=== PATIENT | male | born 1975 | race Caucasian/White ===

== ENCOUNTER 2017-01-23 16:43 | Emergency (ER) | payer SELFPAY ==
--- NOTE | 2017-01-23 18:30 | CT ---
C-SPINE W/O CON History: Increasing pain. Procedure: 1 mm axial images were obtained through the cervical spine from the base of the skull to T1 with stacked reconstructed 2 mm images photographed in the axial, coronal and sagittal planes. Comparison: None. Findings: The osseous structures are intact without evidence of a discrete fracture. The alignment is normal. No significant subluxation is visualized. The facets align appropriately without evidence of a perched or jumped facet. The spinous processes appear to be intact. No prevertebral soft tissue swelling is observed. The pre-dens space is not widened. The odontoid process is intact. The thyroid gland and the visualized lung apices appear to be normal. There is the suggestion of left T1-2 osseous neural foraminal narrowing. There is also the suggestion of a small left paracentral protrusion at C6-7. Impression: 1. No discrete fracture or significant subluxation visualized. 2. Left-sided osseous neural foraminal narrowing at T1-2. 3. A suggested small left paracentral disc protrusion at C6-7.
--- NOTE | 2017-01-23 18:38 | CT ---
T-SPINE W/O CON History: Increasing back pain. Comparison: None. Procedure: 1 mm axial images were obtained through the thoracic spine without the use of oral or intravenous contrast. Stacked reconstructed 3 mm images were then photographed in the axial, coronal and sagittal planes. Findings: Images demonstrate an intact appearance of the visualized osseous structures. There is no significant compression deformity visualized. There is evidence of mild multilevel thoracic spondylosis changes. Mild osseous neural foraminal narrowing is suggested at T1-2, T2-3, and T3-4, on the left. The visualized lung parenchyma is unremarkable. The central canal appears to be patent. Consideration may be given however to MRI for further delineation of the cord and central canal contents. Impression: 1. No discrete fracture or compression deformity visualized. 2. Mild multilevel thoracic spondylosis changes with the suggestion of mild left-sided osseous neural foraminal narrowing at T1-2, T2-3, and T3-4.
[2017-01-23] MEDS ORDERED: PREDNISONE 20 MG TABLET ONE (19:01)
== END 2017-01-23 19:16 | disposition home or self-care (01) ==
LOC: ED 16:43
DX: M54.2 Cervicalgia (principal); M54.6 Pain in thoracic spine; Z59.0 Homelessness